=== PATIENT | male | born 1995 | race Caucasian/White ===

== ENCOUNTER → 2021-10-30 11:57 | Outpatient (CLI) | payer OTHER, SELFPAY ==
--- NOTE | 2021-10-30 | DI.MRI.S_ITS ---
PROCEDURE: MR ANKLE RT WO CON INDICATIONS: Pain in right ankle and joints of right foot TECHNIQUE: Noncontrast sagittal T1 spin echo and T2 fast spin echo with fat saturation, axial proton density fast spin echo and T2 fast spin echo with fat saturation, coronal T1 spin echo and T2 fast spin echo with fat saturation through the ankle/hindfoot. COMPARISON: None. FINDINGS: Image quality: Excellent. Bones and joints: Patchy T2 hyperintense signal within the medial and lateral malleoli as well as the posterior talus, compatible with contusion. Signal heterogeneity with fissure in the talar dome hyaline cartilage with anterior medial subchondral edema. Small tibiotalar joint effusion. Medial structures: The posterior tibialis, flexor digitorum longus, and flexor hallucis longus tendons are intact. The posterior tibial neurovascular bundle appears normal within the tarsal tunnel, without extrinsic mass effect. The deltoid and spring ligaments appear to be intact. Lateral structures: The anterior talofibular ligament is intact. Partial tear of the posterior talofibular and calcaneofibular ligaments. More superiorly, the anterior and posterior tibiofibular ligaments appear intact, as is the intermalleolar ligament. T2 hyperintense signal within the tibiofibular syndesmosis with widening, measuring 2.8 mm. The peroneus longus and brevis tendons demonstrate normal location and morphology. The sinus tarsi demonstrates normal fatty signal, without edema, fibrosis, or cyst formation. Visualized sinus tarsi components (cervical ligament, interosseous talocalcaneal ligament, roots of the inferior extensor retinaculum) appear normal. Anterior structures: The tibialis anterior, extensor hallucis longus, and extensor digitorum longus tendons appear intact. Posterior and plantar structures: Achilles tendon is intact. T2 hyperintense signal in the soft tissues overlying the plantar fascia attachment to the calcaneus, which may reflect fasciitis /partial tear. No abductor digiti quinti muscle atrophy to suggest Garcia neuropathy. IMPRESSION: 1. Mild edematous signal in the medial and lateral malleoli as well as the posterior posterior talus, compatible with contusion. 2. Partial tear of the plantar fascia at the calcaneal attachment. 3. Osteochondral injury involving the anterior talar dome. 4. Small tibiotalar joint effusion. 5. Widening of the tibiofibular syndesmosis. 6. Partial tear of the posterior talofibular and calcaneofibular ligaments. Dictated by: Choco Jane M.D. on 10/30/2021 at 12:52 Approved by: Choco Jane M.D. on 10/30/2021 at 13:07
== END ==
PROVIDERS: PCP Student in an Organized Health Care Education/Training Program; Referring Provider Orthopaedic Surgery Foot and Ankle Surgery; Visit Provider Orthopaedic Surgery Foot and Ankle Surgery
DX: S93.411A Sprain of calcaneofibular ligament of right ankle, initial encounter (principal); S93.492A Sprain of other ligament of left ankle, initial encounter; M25.571 Pain in right ankle and joints of right foot; M25.474 Effusion, right foot
CPT/HCPCS: 73721

== ENCOUNTER 2023-10-14 11:56 | Day surgery (SDC) | payer OTHER, SELFPAY ==
[2023-10-06 15:08] VITALS: BMI 25.7
[2023-10-14] VITALS (7 sets, daily range): BP systolic 113–139; BP diastolic 73–94; PULSE 67–80; RESP 12–18; TEMP 36.1–36.4; O2SAT 99–100; BMI 25.7
--- NOTE | 2023-10-14 | DI.RAD.S_ITS ---
PROCEDURE: XR ANKLE RT 2V INDICATIONS: SPUR REMOVAL R ANKLE TECHNIQUE: 3 views of the ankle were acquired. COMPARISON: [facility] Outside [facility], MR, MR ANKLE RIGHT WITHOUT CONTRAST, 03/05/2023, 7:43. [facility] [place], CR, XR ANKLE 3 VIEWS WEIGHT BEARING RIGHT, 09/13/2023, 13:46. FINDINGS: Bones: No fractures or dislocations. Ankle mortise is normally aligned. No suspicious bony lesions. Soft tissues: No tibiotalar joint effusion. Achilles tendon appears normal. IMPRESSION: Postprocedural distal acquisition imaging, no retained foreign body or osseous injury found. Dictated by: Ovi Dimas M.D. on 10/14/2023 at 16:14 Approved by: Ovi Dimas M.D. on 10/14/2023 at 16:16
[2023-10-14] MEDS: LACTATED RINGERS 1,000 ML 84 ML IV (12:35)
--- NOTE | 2023-10-14 13:44 | PM.HP.1 ---
History of Present Illness History of Present Illness Date Patient Seen: 10/14/23 Time Patient Seen: 13:44 Chief complaint: Right ankle pain Narrative: The patient is a 28-year-old male with chronic right ankle pain and anterior ankle impingement. An injury where he would bone edema at his anterior tibial and talar spurs. He did physical therapy and returned with the same pain that is not improving. It is a dull pain he has limited ankle range of motion pain and dorsiflexion. New MRI shows decreased bone edema but he has persistent pain with anterior tibiotalar impingement symptoms. Presents today for anterior ankle debridement and cheilectomy of the tibia and talar spurs [facility] Medical History Sprain of deltoid ligament of right ankle Ankle impingement syndrome, right Social History household members: spouse Smoking Status: Never smoker alcohol intake: current Meds Home Medications and Allergies Home Medications Medication Instructions Recorded Confirmed Type No Known Home Medications 10/06/23 10/06/23 History Allergies Allergy/AdvReac Type Severity Reaction Status Date / Time amoxicillin Allergy Verified 10/14/23 12:13 Penicillins Allergy Verified 10/14/23 12:13 Review of Systems Review of Systems ROS: Yes All systems reviewed with the patient and are negative except as otherwise documented Exam Vital Signs (past 8 hours): - 10/14/23 12:25 Temperature 97.6 F Pulse Rate 77 Respiratory Rate 16 Blood Pressure 139/94 H Pulse Oximetry 99 Oxygen Delivery Method Room Air Oxygen Delivery Method Room Air Narrative Exam Narrative: Alert and oriented no acute distress HEENT normal cephalic atraumatic Respiratory exam unlabored on room air lungs clear to auscultation Heart regular rate and rhythm full weight-bearing no assistive device Right lower extremity exam grossly normal alignment and range of motion pain with terminal dorsiflexion at the anterior tibiotalar joint consistent with the anterior impingement. Stable anterior drawer and talar tilt. Achilles intact. No pain along the medial or lateral malleoli. Mild pale and posterior tibialis tendon but is able to do a single heel raise. Grossly normal alignment. Palpable dorsalis pedis pulse and sensation grossly intact [facility] MRI right ankle March 05, 2023: My impression: Interval resolution bone edema at right distal tibia. Spurring present anteriorly distal tibia and laterally as well as dorsal talus spurring and seemed very consistent with anterior impingement. No acute fractures or significant bone edema. Achilles intact. No talar dome osteochondral lesions. Evidence of previous low-grade sprains. Assessment & Plan Assessment and plan (1) Impingement of anterior part of ankle: Status: Acute Assessment & Plan narrative: Anterior ankle impingement --failed conservative treatment. Indicated for debridement anterior tibial and talar spurs. Due to the size and location lesions recommend for open arthrotomy and cheilectomy. Postop will be weightbear as tolerated in a boot for 2 weeks until the incisions heal been weightbear as tolerated in a shoe. Patient has no past history of blood clots. Aspirin DVT prophylaxis while in the boot. The risks and benefits of the procedure have been discussed with the patient and given the opportunity to ask questions. The risks of surgery include but are not limited to infection, malunion, nonunion, persistence of pain, damage to nerves and blood vessels, posttraumatic arthritis, DVT, PE, coardiopulmonary complications and . The patient expressed a thorough understanding of the risks and benefits of surgery and has elected to proceed. Consent was signed. Time Spent With Patient Time with patient: less than 30 minutes Quality VTE Deep Vein Thrombosis/Pulmonary Embolism Present on Admission: No
[2023-10-14] MEDS: CEFAZOLIN 2 GM/100 ML PREMIX 100 ML IV (13:50)
--- NOTE | 2023-10-14 14:25 | SUR.OPER ---
Supine on padded OR bed, head on pillow, arms secured on padded arm boards at <90 degrees abduction, legs uncrossed, safety belt at thigh, tape over blanket over left leg, right hip bumped with blanket roll and right lower leg propped on blankets to elevate.
[2023-10-14] MEDS: BUPIVACAINE 0.25% (PF) 30 ML, EPINEPHrine 0.15 MG INJ (14:38)
[2023-10-14] MEDS: ACETAMINOPHEN IV 1,000 MG/100 ML VIAL 400 MG IV (14:42)
[2023-10-14] MEDS: OXYCODONE IR 5 MG TABLET PO ×2 (15:04→15:27)
--- NOTE | 2023-10-14 17:49 | PM.OP.1 ---
Operative Date/Time/Diagnoses Date of procedure: 10/14/23 Time of procedure: 14:00 Pre-op diagnosis: Right ankle impingement syndrome Post-op diagnosis: same Procedure & Clinicians Procedure: Excision bone spur tibia CPT code 86697, right Excision talus, partial CPT code 10448, right Same procedure as scheduled: Yes Indications: Patient is a 28-year-old male that has chronic right ankle pain at his anterior ankle has anterior tibiotalar pain and impingement symptoms. Had an MRI that demonstrated anterior distal tibial and dorsal talar spurring extent with impingement lesions. He failed extensive conservative treatment of rest immobilization physical therapy. He has been unable to return to his active lifestyle and has required a walking boot. He was indicated for open arthrotomy and cheilectomy, spur removal from the distal tibia and dorsal talus. The risks and benefits of the procedure have been discussed with the patient and given the opportunity to ask questions. The risks of surgery include but are not limited to infection, malunion, nonunion, persistence of pain, damage to nerves and blood vessels, posttraumatic arthritis, DVT, PE, cardiopulmonary complications and . The patient expressed a thorough understanding of the risks and benefits of surgery and has elected to proceed. Consent was signed Surgeon: Jessica Scruggs Click Yes if Unassisted: Yes Anesthesia Type: General, Peripheral nerve block and Local Operative Notes Findings: Distal tibial spurring and dorsal talar spurring and bossing. No osteochondral lesions. No loose bodies. Distal tibia spurring was removed using an osteotome under direct visualization through the arthrotomy carefully from medial to lateral across the joint with care to protect the cartilaginous surfaces. Additionally the dorsal talar spurs were separately removed using a rongeur and smoothed with a rasp. Closure Type: primary Specimen(s): none sent Estimated Blood Loss (mL): 10 Blood products transfused: none Tourniquet time (min): 23 Procedure in detail: Patient was seen in the preoperative area the site of surgery was marked informed consent confirmed. The patient was brought to the operating room by the anesthesia team positioned supine on operative table. General anesthetic was administered. The patient elected for a preoperative regional nerve block with the anesthesia team for postoperative pain control. Patient was positioned supine on the table. Anesthetic was administered. A well-padded thigh tourniquet was placed. The right lower extremity was prepped and draped in the standard sterile fashion a formal time-out procedure was performed confirming the patient's side and site of surgery administration of appropriate preoperative antibiotic was 2 g of Ancef. Patient tolerated this well. Attention was turned to the right ankle a standard anteromedial arthrotomy was drawn out over the course of 4 cm just medial to the tibialis anterior tendon. Incision was made down through the skin subcutaneous tissues. The anterior tibialis tendon was kept in its sheath and retracted laterally. An arthrotomy was made. The talar dome was inspected and was pristine. The distal tibial bone spurs were identified medially and larger anterior laterally. Additionally visualized and palpated spurs at the dorsal talus were palpated centrally and the prominent medial dorsal talar spur. Next the osteotome was utilized to carefully remove the distal tibial exostosis with the ankle in dorsiflexion protecting the talar dome. This was then removed using the [place] and the pituitary rongeur. Once this was completed I was able to see all the way across the dome there were no debris attention was turned distally to the talus and the rongeur and rasp were used to remove the dorsal talar exostoses. The ankle was taken through range of motion which was full and no remaining impinging lesions were noted. The large C-arm was brought in to take confirmatory fluoroscopy demonstrated removal of the distal tibial spurs and debulking and removal of the dorsal talar spurs. Ankle mortise was symmetric. Ligamentous examination was stable. At this point the tourniquet was released hemostasis was achieved the wound was irrigated and closed with 2-0 Vicryl in the arthrotomy 2-0 Vicryl subcutaneous stitches and 4-0 Monocryl subcutaneous followed by 3-0 nylon in the skin. 15 cc of 0.25% Marcaine with epinephrine was injected as local infiltration and intra-articular. A sterile dressing was placed with Xeroform gauze and Webril and an Russ wrap. Drapes removed the patient was woken from anesthesia and placed into his walking boot. There were no immediate complications from this procedure. All counts were correct. Complications: none Post-operative Condition: stable Disposition: PACU Plan for aftercare: Weightbear as tolerated in the boot for 2 weeks until the incisions healed then may wean from boot. We will return to clinic in 2 weeks for suture removal. Keep dressing clean dry and intact. Elevate as needed for pain control. Can also ice. May remove boot to sleep.
== END 2023-10-14 16:05 | disposition home or self-care (01) ==
PROVIDERS: PCP Student in an Organized Health Care Education/Training Program; Referring Provider Orthopaedic Surgery Foot and Ankle Surgery; Visit Provider Orthopaedic Surgery Foot and Ankle Surgery
PROC: (CPT 28120; principal; 2023-10-14 13:45)
DX: M25.871 Other specified joint disorders, right ankle and foot (principal); T14.8XXA Other injury of unspecified body region, initial encounter; M76.821 Posterior tibial tendinitis, right leg; R79.89 Other specified abnormal findings of blood chemistry; S93.421D Sprain of deltoid ligament of right ankle, subsequent encounter; G89.18 Other acute postprocedural pain
CPT/HCPCS: 28120; 27635; 64450; 73600; 76000; J0131; J0171; J0690; J1100; J1885; J2250; J2405; J2704; J3010